=== PATIENT | female | born 1930 ===

== ENCOUNTER 2017-04-12 18:57 | Emergency (ER) | payer MEDICARE ==
[2017-04-12 19:01] VITALS: BP 189/93; PULSE 87; RESP 16; TEMP 98; O2SAT 99
--- NOTE | 2017-04-12 20:04 | ED PDOC ---
HPI: CCC, URI, Sore Throat Time Seen by Provider: 04/12/17 19:18 Chief Complaint (Nursing): ENT Problem Chief Complaint (Provider): Epistaxis History Per: Patient History/Exam Limitations: no limitations Onset/Duration Of Symptoms: Days (x1) Current Symptoms Are (Timing): Still Present Additional Complaint(s): 86 year old female, with a past medical history of cataract surgery, who presents to the ED complaining of epistaxis x1 day. Patient states the episode occurred from her right nostril while she was eating soup and lasted 10 minutes. Patient is concerned because she had cataract surgery on Thursday. Reports taking an aspirin a day. PMD: Vj Moraes Past Medical History Reviewed: Historical Data, Nursing Documentation, Vital Signs Vital Signs: Last Vital Signs Temp 98.0 F 04/12/17 18:58 Pulse 87 04/12/17 18:58 Resp 16 04/12/17 18:58 BP 189/93 H 04/12/17 18:58 Pulse Ox 99 04/12/17 18:58 - Medical History PMH: Arthritis ([place]), Asthma, Diabetes, HTN Denies: HIV, Chronic Kidney Disease - Surgical History Surgical History: Cholecystectomy (6 years ago) Other surgeries: Cataract surgery - Family History Family History: States: Unknown Family Hx - Home Medications Home Medications: Ambulatory Orders Medication Instructions Recorded Allopurinol [Zyloprim] 100 mg PO DAILY #0 tab 11/12/15 Isosorbide Mononitrate ER [Imdur 30 mg PO DAILY #0 tab 11/12/15 ER] Latanoprost 0.005% Opht [Xalatan 2 drop OU HS #0 bottle 11/12/15 Opht] Lisinopril [Zestril] 20 mg PO DAILY #0 tab 11/12/15 Losartan [Cozaar] 50 mg PO DAILY #0 tab 11/12/15 Metoprolol Succinate [Toprol XL] 50 mg PO DAILY #0 tab 11/12/15 amLODIPine [Norvasc] 5 mg PO DAILY #0 tab 11/12/15 metFORMIN [glucOPHAGE] 500 mg PO BID #0 tab 11/12/15 - Allergies Allergies/Adverse Reactions: Allergies Allergy/AdvReac Type Severity Reaction Status Date / Time No Known Allergies Allergy Verified 11/09/15 06:33 Review of Systems ROS Statement: Except As Marked, All Systems Reviewed And Found Negative ENT: Positive for: Other (Epistaxis) Physical Exam - Reviewed Nursing Documentation Reviewed: Yes Vital Signs Reviewed: Yes - Physical Exam Appears: Positive for: Well, Non-toxic, No Acute Distress Head Exam: Positive for: ATRAUMATIC, NORMAL INSPECTION, NORMOCEPHALIC Skin: Positive for: Normal Color, Warm, Dry. Negative for: Rash Eye Exam: Positive for: EOMI, Normal appearance, PERRL ENT: Positive for: Other (Right nare no active bleeding or ulcers, scant dried blood seen) Neck: Positive for: Normal, Painless ROM, Supple Cardiovascular/Chest: Positive for: Regular Rate, Rhythm. Negative for: Murmur Respiratory: Positive for: Normal Breath Sounds. Negative for: Respiratory Distress Gastrointestinal/Abdominal: Positive for: Normal Exam, Soft. Negative for: Tenderness Back: Positive for: Normal Inspection. Negative for: L CVA Tenderness, R CVA Tenderness, Vertebral Tenderness Extremity: Positive for: Normal ROM. Negative for: Pedal Edema, Deformity Neurologic/Psych: Positive for: Alert, Oriented (x3). Negative for: Motor/ Sensory Deficits - ECG O2 Sat by Pulse Oximetry: 99 (RA) Pulse Ox Interpretation: Normal Medical Decision Making Medical Decision Making: Time: 19:20 Initial Impression: Epistaxis Plan: --Reevaluation Scribe Attestation: Documented by Daniel Hebert, acting as a scribe for Adriana Soto MD. Provider Scribe Attestation: All medical record entries made by the Scribe were at my direction and personally dictated by me. I have reviewed the chart and agree that the record accurately reflects my personal performance of the history, physical exam, medical decision making, and the department course for this patient. I have also personally directed, reviewed, and agree with the discharge instructions and disposition. Disposition - Disposition
== END 2017-04-12 22:15 | disposition home or self-care (01) ==
LOC: H.ER 18:57
DX: R04.0 Epistaxis (principal); E11.9 Type 2 diabetes mellitus without complications; I10 Essential (primary) hypertension; J45.909 Unspecified asthma, uncomplicated; Z79.84 Long term (current) use of oral hypoglycemic drugs